=== PATIENT | female | born 1990 | race Caucasian/White ===

== ENCOUNTER 2018-02-15 10:13 | Emergency (ER) | payer SELFPAY | END 2018-02-15 10:33 | disposition home or self-care (01) | LOC: FTE 10:13 → E/R 10:33 | DX: O99.519 Diseases of the respiratory system complicating pregnancy, unspecified trimester (principal); B34.9 Viral infection, unspecified; O98.519 Other viral diseases complicating pregnancy, unspecified trimester; J00 Acute nasopharyngitis [common cold]; Z3A.00 Weeks of gestation of pregnancy not specified | CPT/HCPCS: 99283 ==

== ENCOUNTER 2018-02-20 09:40 | Emergency (ER) | payer SELFPAY, MEDICAID ==
[2018-02-20] MEDS: FLUORESCEIN STRIP RIGHT EYE (10:08)
[2018-02-20] MEDS: TETRACAINE 0.5% 4 ML OPH LEFT EYE (10:08)
[2018-02-20] MEDS: VALACYCLOVIR 500 MG TAB PO (10:31)
== END 2018-02-20 11:21 | disposition home or self-care (01) ==
LOC: FTE 09:40
DX: O98.311 Other infections with a predominantly sexual mode of transmission complicating pregnancy, first trimester (principal); B02.9 Zoster without complications
CPT/HCPCS: 99283

== ENCOUNTER 2018-08-26 09:39 | Inpatient (IN) | payer MEDICAID ==
[2018-08-26] MEDS: LACTATED RINGER'S 1,000 ML IV ×2 (06:00→11:18)
[~2018-08-26 09:39] MED LIST: EPINEPHrine 1 MG INJ
[2018-08-26] MEDS ORDERED: CEFAZOLIN 2 GM/50 ML (PMX) 50 ML IVPB (11:00)
[2018-08-26] MEDS ORDERED: OXYTOCIN 30 UNITS/LR 500 ML IV ×3 (11:00→17:00)
[2018-08-26] MEDS ORDERED: METHYLERGONOVINE 0.2 MG INJ IM ×2 (11:00→17:00)
[2018-08-26] MEDS ORDERED: MISOPROSTOL 200 MCG TAB PR ×2 (11:00→17:00)
[2018-08-26] MEDS ORDERED: CARBOPROST 250 MCG INJ IM ×2 (11:00→17:00)
[2018-08-26 11:09] LABS: ADD MAN DIFF? NO
[2018-08-26 11:14] LABS: WHITE BLOOD COUNT 8.3 10^3/ul (4.8-10.8)
[2018-08-26 11:14] LABS: BASOPHILS % 0.2 % (0.0-2.0); EOSINOPHILS # 0.1 10^3/ul (0.0-0.5); HEMATOCRIT 38.1 % (37.0-47.0); HEMOGLOBIN 12.4 g/dl (12.0-16.0); LYMPHOCYTES # 1.8 10^3/ul (0.8-2.9); LYMPHOCYTES % 21.3 % (15.0-51.0); MEAN CORPUSCULAR HEMOGLOBIN 29.7 pg (29.0-33.0); MEAN CORPUSCULAR HGB CONC 32.5 g/dl (32.0-37.0); MEAN CORPUSCULAR VOLUME 91.4 fl (82.0-101.0); MEAN PLATELET VOLUME 11.9 fl (7.4-10.4); MONOCYTE # 0.7 10^3/ul (0.3-0.9); MONOCYTES % 8.8 % (0.0-11.0); NEUTROPHIL # 5.6 10^3/ul (1.6-7.5); NEUTROPHILS % 67.6 % (39.0-77.0); PLATELET COUNT 207 10^3/UL (140-415); RED BLOOD COUNT 4.17 10^6/ul (4.20-5.40); RED CELL DISTRIBUTION WIDTH 15.4 % (11.5-14.5)
[2018-08-26 11:31] LABS: INR 0.92; PROTIME 12.4 Sec (11.9-14.9)
[2018-08-26 11:32] LABS: PARTIAL THROMBOPLASTIN TIME 26.4 Sec (23.0-35.0)
[2018-08-26] MEDS: ONDANSETRON 4 MG INJ IV (11:50)
[2018-08-26] MEDS: FAMOTIDINE 20 MG INJ IV (11:50)
[2018-08-26] MEDS: METOCLOPRAMIDE 10 MG INJ IV (11:50)
[2018-08-26 12:05] LABS: HEPATITIS B SURFACE ANTIGEN NEGATIVE (NEGATIVE)
[2018-08-26] MEDS ORDERED: morphine SULFATE/PF (10 MG/10 ML) INJ (12:13)
[2018-08-26] MEDS ORDERED: BUPIVACAINE 0.75%/DEXT (SPINAL) 2 ML INJ ×2 (12:14→12:27)
[2018-08-26] MEDS ORDERED: OXYTOCIN 10 UNIT INJ (12:14)
[2018-08-26] MEDS ORDERED: ZOLPIDEM 5 MG TAB PO (12:30)
[2018-08-26] MEDS ORDERED: FENTAnyl 50 MCG/ML VIAL IV ×2 (12:30)
[2018-08-26] MEDS ORDERED: ONDANSETRON 4 MG INJ IV ×2 (12:30)
[2018-08-26] MEDS ORDERED: DIPHENHYDRAMINE 50 MG INJ IV ×2 (12:30)
[2018-08-26] MEDS ORDERED: HYDROmorphONE 0.5 MG/0.5 ML SYG IV ×2 (12:30)
[2018-08-26] MEDS ORDERED: HYDROmorphONE 1 MG/5 ML IV SYRINGE IV ×3 (12:30)
[2018-08-26] MEDS ORDERED: NALOXONE (0.4 MG/ML) INJ IV (12:30)
[2018-08-26] MEDS ORDERED: PHENYLephrine (100 MCG/ML) 10ML SYG (12:37)
[2018-08-26] MEDS: OXYTOCIN 30 UNITS/LR 500 ML IV ×3 (14:15→20:58)
[2018-08-26] MEDS: KETOROLAC 30 MG INJ IV (15:27)
[2018-08-26 16:11] LABS: RAPID PLASMA REAGIN NONREACTIVE (NR)
[2018-08-26] MEDS ORDERED: OXYCODONE/ACETAMINOPHEN (5/325) TAB PO (17:00)
[2018-08-26] MEDS: LANOLIN HPA 1 PKT TOP (19:01)
[2018-08-26] MEDS: CEFAZOLIN 1 GM/50 ML (PMX) 50 ML IVPB (20:56)
[2018-08-26] MEDS: SENNA/DOCUSATE NA (8.6MG/50MG) TAB PO (20:58)
[2018-08-26] MEDS ORDERED: VALACYCLOVIR 500 MG TAB PO (21:00)
[2018-08-27] MEDS: KETOROLAC 30 MG INJ IV ×2 (00:01→08:36)
[2018-08-27] MEDS: LACTATED RINGER'S 1,000 ML IV ×4 (00:41→18:36)
[2018-08-27] MEDS: OXYTOCIN 30 UNITS/LR 500 ML IV ×7 (00:41→20:41)
[2018-08-27] MEDS: SENNA/DOCUSATE NA (8.6MG/50MG) TAB PO ×2 (09:00→21:24)
[2018-08-27 09:06] LABS: ADD MAN DIFF? NO
[2018-08-27 09:09] LABS: BASOPHILS % 0.3 % (0.0-2.0); EOSINOPHILS # 0.1 10^3/ul (0.0-0.5); EOSINOPHILS % 0.6 % (0.0-7.0); HEMATOCRIT 33.4 % (37.0-47.0); HEMOGLOBIN 10.9 g/dl (12.0-16.0); LYMPHOCYTES # 1.7 10^3/ul (0.8-2.9); LYMPHOCYTES % 17.1 % (15.0-51.0); MEAN CORPUSCULAR HEMOGLOBIN 29.8 pg (29.0-33.0); MEAN CORPUSCULAR HGB CONC 32.6 g/dl (32.0-37.0); MEAN CORPUSCULAR VOLUME 91.3 fl (82.0-101.0); MEAN PLATELET VOLUME 11.8 fl (7.4-10.4); MONOCYTE # 0.7 10^3/ul (0.3-0.9); MONOCYTES % 6.8 % (0.0-11.0); NEUTROPHIL # 7.5 10^3/ul (1.6-7.5); NEUTROPHILS % 74.3 % (39.0-77.0); PLATELET COUNT 176 10^3/UL (140-415); RED BLOOD COUNT 3.66 10^6/ul (4.20-5.40); RED CELL DISTRIBUTION WIDTH 15.2 % (11.5-14.5)
[2018-08-27] MEDS: IBUPROFEN 600 MG TAB PO ×2 (18:38→23:52)
[2018-08-27] MEDS: OXYCODONE/ACETAMINOPHEN (5/325) TAB PO (19:34)
[2018-08-27] MEDS: GUAIFENESIN/DM 5ML CUP PO (21:24)
[2018-08-27] MEDS: SALINE 0.65% 45 ML NAS SPRAY NASAL (23:53)
[2018-08-28] MEDS: OXYTOCIN 30 UNITS/LR 500 ML IV ×2 (00:41→04:41)
[2018-08-28] MEDS: LACTATED RINGER'S 1,000 ML IV (02:36)
[2018-08-28] MEDS: GUAIFENESIN/DM 5ML CUP PO ×3 (04:16→20:07)
[2018-08-28] MEDS: SALINE 0.65% 45 ML NAS SPRAY NASAL ×2 (04:16→19:59)
[2018-08-28] MEDS: IBUPROFEN 600 MG TAB PO ×4 (05:52→23:10)
[2018-08-28] MEDS: HYDROCODONE/APAP (5/325) TAB PO ×2 (07:51→19:24)
[2018-08-28] MEDS: SENNA/DOCUSATE NA (8.6MG/50MG) TAB PO ×2 (09:16→21:20)
[2018-08-28] MEDS: NA PHOSPHATE/BIPHOS 133 ML ENEMA PR (13:30)
[2018-08-29] MEDS: SALINE 0.65% 45 ML NAS SPRAY NASAL (01:32)
[2018-08-29] MEDS: GUAIFENESIN/DM 5ML CUP PO (01:32)
[2018-08-29] MEDS: HYDROCODONE/APAP (5/325) TAB PO ×2 (03:36→09:27)
[2018-08-29] MEDS: IBUPROFEN 600 MG TAB PO ×2 (05:27→11:17)
[2018-08-29] MEDS: SENNA/DOCUSATE NA (8.6MG/50MG) TAB PO (09:23)
[2018-08-29] MEDS: DIPHTH/TET/ACEL PERTUSS (ADULT) 0.5 ML VIAL IM* (10:28)
== END 2018-08-29 13:14 | disposition home or self-care (01) | DRG 785 ==
LOC: L-D 09:39 → PP1 16:40
PROVIDERS: Obstetrics & Gynecology
PROC: 10D00Z1 Extraction of Products of Conception, Low, Open Approach (ICD-10-PCS; principal; 2018-08-26 12:30)
PROC: 0UL70ZZ Occlusion of Bilateral Fallopian Tubes, Open Approach (ICD-10-PCS; 2018-08-26 12:30)
PROC: 3E033VJ Introduction of Other Hormone into Peripheral Vein, Percutaneous Approach (ICD-10-PCS; 2018-08-26 12:30)
DX: O34.211 Maternal care for low transverse scar from previous cesarean delivery (principal); Z30.2 Encounter for sterilization; Z3A.39 39 weeks gestation of pregnancy; Z37.0 Single live birth
CPT/HCPCS: 85025; 85610; 85730; 86592; 86850; 86900; 86901; 87340; 88302; 90686; 90715; 99464

== ENCOUNTER 2019-04-04 14:54 | Emergency (ER) | payer MEDICAID ==
[2019-04-04] MEDS: FLUORESCEIN STRIP RIGHT EYE (16:43)
== END 2019-04-04 17:17 | disposition home or self-care (01) ==
LOC: FTE 17:17
DX: S05.01XA Injury of conjunctiva and corneal abrasion without foreign body, right eye, initial encounter (principal); X58.XXXA Exposure to other specified factors, initial encounter; Y92.9 Unspecified place or not applicable
CPT/HCPCS: 99283; Z7502